=== PATIENT | female | born 1945 | race Caucasian/White ===

== ENCOUNTER 2017-08-29 09:24 | Emergency (ER) | payer OTHER ==
[~2017-08-29] VITALS: Ht 157.5 cm; Wt 68.0 kg
[~2017-08-29 09:24] MED LIST: ALPR0.5T99 PO; BIOTCAP OR; CO Q100C9 PO; FISH1000 PO; FLUO20SO3 PO; LORTA5 PO; NAPR250T57 PO; PREM0.452 PO; VIT250TA PO
[2017-08-29 09:26] VITALS: BP 107/67; PULSE 136; RESP 16; TEMP 98.2; O2SAT 95
[2017-08-29] MEDS ORDERED: BIOTCAP PO (09:38)
[2017-08-29] MEDS ORDERED: PREM0.452 PO (09:38)
[2017-08-29] MEDS ORDERED: ASCO500T PO (09:38)
[2017-08-29] MEDS ORDERED: CALC1TAB87 PO (09:38)
[2017-08-29] MEDS ORDERED: OMEP20TA93 PO (09:38)
--- NOTE | 2017-08-29 09:53 | PD ---
HPI Chief Complaint: Abdominal Pain Time Seen by Provider: 09:49 Travel History International Travel<30 days: No Contact w/Intl Traveler<30days: No Traveled to known affect area: No History of Present Illness HPI Patient presents with complaints of lower abdominal pain for 2-3 days. Denies any nausea or vomiting. Reports normal urination and normal stools. Previous abdominal surgeries include bladder lift 2. Denies any blood per urine or stool. Denies any heavy lifting. PFSH Past Medical History Diabetes: No Diminished Hearing: No GERD: Yes Kidney Stones: Yes Medical other: Yes ([facility]) Immunizations Current: No Influenza Vaccination: No ?: Not Menopausal: Yes Past Surgical History Genitourinary Surgery: Yes (BLADDER LIFT 2009, 2013) Other Surgery: Yes (BIOPSY LEFT BREAST, BENIGN) Social History Alcohol Use: Yes (1/DAILY) Tobacco Use: No Substance Use: No Allergies-Medications (Allergen,Severity, Reaction): Coded Allergies: No Known Allergies (Verified Adverse Reaction, Unknown, 08/29/17) Reported Meds & Prescriptions Reported Meds & Active Scripts Active Reported Calcium 600 with Vitamin D (Calcium Carbonate-Cholecalciferol) 600-400 mg-Unit Tab 1 Tab PO DAILY Biotin 5 Mg Cap 5 Mg PO DAILY Ascorbic Acid 500 Mg Tab 500 Mg PO DAILY Omeprazole 20 Mg Tab 20 Mg PO DAILY Prempro Blister Pack (Estrogens Conj/Medroxyprogest Acet) 0.45-1.5 Mg Tab 1 Tab PO DAILY Review of Systems General / Constitutional: No: Fever Eyes: No: Visual changes HENT: No: Headaches Cardiovascular: No: Chest Pain or Discomfort Respiratory: No: Shortness of Breath Gastrointestinal: Positive: Abdominal Pain Genitourinary: No: Dysuria Musculoskeletal: No: Pain Skin: No Rash Neurologic: No: Weakness Psychiatric: No: Depression Endocrine: No: Polydipsia Hematologic/Lymphatic: No: Easy Bruising Physical Exam Narrative GENERAL: Well-nourished, well-developed patient. SKIN: Focused skin assessment warm/dry. HEAD: Normocephalic. EYES: No scleral icterus. No injection or drainage. NECK: Supple, trachea midline. No JVD or lymphadenopathy. CARDIOVASCULAR: Regular rate and rhythm without murmurs, gallops, or rubs. RESPIRATORY: Breath sounds equal bilaterally. No accessory muscle use. GASTROINTESTINAL: Abdomen soft, diffusely tender bilateral lower quadrants, nondistended. MUSCULOSKELETAL: No cyanosis, or edema. BACK: Nontender without obvious deformity. No CVA tenderness. Data Data Last Documented VS Vital Signs Date Time Temp Pulse Resp B/P (MAP) Pulse Ox O2 Delivery O2 Flow Rate FiO2 08/29/17 11:22 120 17 116/74 (88) 97 Room Air 08/29/17 09:26 98.2 Orders Orders Complete Blood Count With Diff (08/29/17 09:49) Comprehensive Metabolic Panel (08/29/17 09:49) Lipase (08/29/17 09:49) Lactic Acid (08/29/17 09:49) Urinalysis - C+S If Indicated (08/29/17 09:49) Ct Abd/Pel W Iv Contrast(Rout) (08/29/17 09:49) Iv Access Insert/Monitor (08/29/17 09:49) Ecg Monitoring (08/29/17 09:49) Oximetry (08/29/17 09:49) Sodium Chloride 0.9% Flush (Ns Flush) (08/29/17 10:00) Urine Culture (08/29/17 09:50) Iohexol 350 Inj (Omnipaque 350 Inj) (08/29/17 10:30) Ketorolac Inj (Toradol Inj) (08/29/17 11:30) Labs Laboratory Tests Test 08/29/17 09:50 08/29/17 09:55 Urine Collection Type CLEAN CATCH Urine Color YELLOW Urine Turbidity CLOUDY Urine pH 6.0 Urine Specific [place] 1.022 Urine Protein NEG mg/dL Urine Glucose (UA) NEG mg/dL Urine Ketones 15 mg/dL Urine Occult Blood NEG Urine Nitrite NEG Urine Bilirubin NEG Urine Leukocyte Esterase SMALL Urine RBC 0-3 /hpf Urine WBC 9-14 /hpf Urine Squamous Epithelial Cells 6-8 /hpf Urine Bacteria MOD /hpf Microscopic Urinalysis Comment CULTURE INDICATED White Blood Count 8.5 TH/MM3 Red Blood Count 4.39 MIL/MM3 Hemoglobin 13.9 GM/DL Hematocrit 40.9 % Mean Corpuscular Volume 93.2 FL Mean Corpuscular Hemoglobin 31.5 PG Mean Corpuscular Hemoglobin Concent 33.9 % Red Cell Distribution Width 12.1 % Platelet Count 282 TH/MM3 Mean Platelet Volume 6.7 FL Neutrophils (%) (Auto) 73.7 % Lymphocytes (%) (Auto) 16.5 % Monocytes (%) (Auto) 8.0 % Eosinophils (%) (Auto) 1.2 % Basophils (%) (Auto) 0.6 % Neutrophils # (Auto) 6.2 TH/MM3 Lymphocytes # (Auto) 1.4 TH/MM3 Monocytes # (Auto) 0.7 TH/MM3 Eosinophils # (Auto) 0.1 TH/MM3 Basophils # (Auto) 0.1 TH/MM3 CBC Comment DIFF FINAL Differential Comment Blood Urea Nitrogen 12 MG/DL Creatinine 0.71 MG/DL Random Glucose 105 MG/DL Total Protein 7.4 GM/DL Albumin 3.5 GM/DL Calcium Level 9.2 MG/DL Alkaline Phosphatase 59 U/L Aspartate Amino Transf (AST/SGOT) 12 U/L Alanine Aminotransferase (ALT/SGPT) 23 U/L Total Bilirubin 0.6 MG/DL Sodium Level 139 MEQ/L Potassium Level 3.8 MEQ/L Chloride Level 104 MEQ/L Carbon Dioxide Level 24.5 MEQ/L Anion Gap 11 MEQ/L Estimat Glomerular Filtration Rate 81 ML/MIN Lactic Acid Level 0.9 mmol/L Lipase 194 U/L [facility] Medical Decision Making Medical Screen Exam Complete: Yes Emergency Medical Condition: Yes Differential Diagnosis UTI, SBO, enteritis, diverticulitis Narrative Course Assessment and plan discussed with patient and daughter at bedside. Last 72 hours Impressions Abdomen/Pelvis CT 08/29/17 0949 Signed Impressions: Service Date/Time: Tuesday, August 29, 2017 10:31 - CONCLUSION: 1. Acute diverticulitis of the mid sigmoid colon. No evidence of drainable abscess or free air. 2. Calcified uterine fibroid. 3. Right sided renal cysts. Randy Zaragoza MD Diagnosis Primary Impression: Diverticulitis Additional Impression: UTI (urinary tract infection) Qualified Codes: N39.0 - Urinary tract infection, site not specified Patient Instructions: General Instructions Additional Instructions: Encourage fluids, medications as prescribed, encouraged a bland high-fiber diet. Return to emergency with any onset of new symptoms. Encouraged to avoid alcohol or Tylenol taking Flagyl. Med/Other Pt SpecificInfo: Prescription(s) given Scripts Metronidazole (Flagyl) 500 Mg Tab 500 MG PO BID for Infection for 10 Days, #20 TAB 0 Refills Prov: Good Mederos MD 08/29/17 Ciprofloxacin (Cipro) 500 Mg Tab 500 MG PO BID for Infection for 10 Days, #20 TAB 0 Refills Prov: Good Mederos MD 08/29/17 Hydrocodone-Acetaminophen (Hydrocodone-Acetaminophen) 5-325 mg Tab 1 TAB PO Q4H Y for PAIN, #20 TAB 0 Refills Prov: Good Mederos MD 08/29/17 Disposition: 01 DISCHARGE HOME Condition: Good Good Mederos MD Aug 29, 2017 09:53
[2017-08-29] MEDS ORDERED: SODIUM CHLORIDE 0.9% FLUSH 10 ML FLUSH IV FLUSH PRN (10:00)
[2017-08-29 10:01] VITALS: O2SAT 98
[2017-08-29 10:09] LABS: AUTOMATED NEUTROPHIL # 6.2 TH/MM3 (1.8-7.7); BASOPHIL # 0.1 TH/MM3 (0-0.2); BASOPHIL % 0.6 % (0.0-2.0); EOSINOPHIL # 0.1 TH/MM3 (0-0.4); EOSINOPHIL % 1.2 % (0.0-4.0); HEMATOCRIT 40.9 % (35.0-46.0); HEMO FLAGS DIFF FINAL; LYMPH % 16.5 % (9.0-44.0); LYMPHOCYTE # 1.4 TH/MM3 (1.0-4.8); MEAN CELL VOLUME 93.2 FL (80.0-100.0); MEAN CORPUSCULAR HEMOGLOBIN 31.5 PG (27.0-34.0); MEAN CORPUSCULAR HGB CONC 33.9 % (32.0-36.0); NEUT % 73.7 % (16.0-70.0); PLATELET COUNT 282 TH/MM3 (150-450); RED BLOOD COUNT 4.39 MIL/MM3 (4.00-5.30); RED CELL DISTRIBUTION WIDTH 12.1 % (11.6-17.2); WHITE BLOOD COUNT 8.5 TH/MM3 (4.0-11.0)
[2017-08-29 10:09] LABS: BLOOD, URINE NEG (NEG); GLUCOSE,URINE NEG (NEG); KETONE, URINE 15 mg/dL (NEG); NITRITE,URINE NEG (NEG)
[2017-08-29 10:15] LABS: BACTERIA, URINE MOD /hpf; METHOD OF COLLECTION CLEAN CATCH; RBC, URINE 0-3 /hpf (0-3); URINE COLOR YELLOW (YELLW/STRAW)
[2017-08-29 10:16] LABS: CHLORIDE 104 MEQ/L (98-107); POTASSIUM 3.8 MEQ/L (3.5-5.1); SODIUM (NA) 139 MEQ/L (136-145)
[2017-08-29 10:16] LABS: COMMENT (UR) CULTURE INDICATED; CULTURE IF INDICATED CULTURE INDICATED
[2017-08-29 10:20] LABS: ANION GAP 11 MEQ/L (5-15); BICARBONATE 24.5 MEQ/L (21.0-32.0); BLOOD UREA NITROGEN 12 MG/DL (7-18)
[2017-08-29 10:23] LABS: ALT (GPT) 23 U/L (10-53); AST (GOT) 12 U/L (15-37); GLOMERULAR FILTRATION RATE 81 ML/MIN (>89)
[2017-08-29 10:24] LABS: TOTAL BILIRUBIN ADULT 0.6 MG/DL (0.2-1.0)
[2017-08-29 10:26] LABS: ALKALINE PHOSPHATASE 59 U/L (45-117)
[2017-08-29] MEDS ORDERED: IOHEXOL 350 MG/ML 10 ML VIAL (for RAD DIAG) IVCONTRAST ONE (10:30)
--- NOTE | 2017-08-29 10:59 | RADRPT ---
EXAM DATE/TIME: 08/29/2017 10:31 [place] COMPARISON: CT ABDOMEN & PELVIS W/O CONTRAST, March 25, 2016, 11:59. INDICATIONS : Chills and lower abdominal pain. IV CONTRAST: 75 cc Omnipaque 350 (iohexol) IV ORAL CONTRAST: No oral contrast ingested. RADIATION DOSE: 9.89 CTDIvol (mGy) MEDICAL HISTORY : Gastroesophageal reflux disease. Renal calculi. [place] SURGICAL HISTORY : Bladder lift. ENCOUNTER: Initial ACUITY: 2 days PAIN SCALE: 7/10 LOCATION: lower abdominal. TECHNIQUE: Volumetric scanning of the abdomen and pelvis was performed. Using automated exposure control and ad justment of the mA and/or kV according to patient size, radiation dose was kept as low as reasonably achievable to obtain optimal diagnostic quality images. DICOM format image data is available electro nically for review and comparison. FINDINGS: LOWER LUNGS: The visualized lower lungs are clear. LIVER: Homogeneous density without lesion. There is no dilation of the biliary tree. No calcified gall[place] es. SPLEEN: Several scattered calcified granulomas in the spleen. PANCREAS: Within normal limits. KIDNEYS: Two 1 cm nonenhancing cyst in the right kidney. Kidneys otherwise unremarkable. ADRENAL GLANDS: Within normal limits. VASCULAR: Diffuse aortic calcification. Diameter within normal limits. BOWEL/MESENTERY: Numerous colonic diverticula, concentrated in the sigmoid region. Focal prominent wall thickening and adjacent inflammatory changes of the mid sigmoid colon indicating acute diverticulitis. No periphera lly enhancing fluid collection. No free air. ABDOMINAL WALL: Within normal limits. RETROPERITONEUM: There is no lymphadenopathy. BLADDER: No wall thickening or mass. REPRODUCTIVE: Exophytic calcified 2.4 cm left-sided uterine fibroid. INGUINAL: There is no lymphadenopathy or hernia. MUSCULOSKELETAL: 1.6 cm sclerotic focus in the left pubic body unchanged indicating a bone island. Small bone island a lso seen in the left acetabulum superiorly CONCLUSION: 1. Acute diverticulitis of the mid sigmoid colon. No evidence of drainable abscess or free air. 2. Calcified uterine fibroid. 3. Right sided renal cysts. Randy Zaragoza MD on August 29, 2017 at 10:48 Board Certified Radiologist. This report was verified electronically.
[2017-08-29 11:22] VITALS: BP 116/74; PULSE 120; RESP 17; O2SAT 97
[2017-08-29] MEDS ORDERED: CIPR-9 PO (11:28)
[2017-08-29] MEDS ORDERED: METR-1 PO (11:28)
[2017-08-29] MEDS ORDERED: HYDR-3516 PO (11:28)
[2017-08-29] MEDS ORDERED: KETOROLAC TROMETHAMINE 60 MG/2 ML (IM) VIAL IM ONE (11:30)
[2017-08-29 11:52] VITALS: BP 125/73
== END 2017-08-29 12:01 | disposition home or self-care (01) ==
LOC: PHED 09:24
DX: K57.32 Diverticulitis of large intestine without perforation or abscess without bleeding (principal); N39.0 Urinary tract infection, site not specified; N28.1 Cyst of kidney, acquired; D25.9 Leiomyoma of uterus, unspecified; R82.99 Other abnormal findings in urine; Z87.442 Personal history of urinary calculi; Z79.899 Other long term (current) drug therapy
CPT/HCPCS: 74177; 80053; 81001; 83605; 83690; 85025; 87086; 96372; 99285; J1885; Q9967